=== PATIENT | male | born 1950 | race Caucasian/White ===

== ENCOUNTER → 2021-06-02 | Emergency (ER) | payer OTHER, MEDICARE ==
[~2021-06-02] VITALS: Ht 177.8 cm; Wt 73.9 kg
[2021-06-02 18:58] VITALS: BP 137/72
--- NOTE | 2021-06-03 12:46 | EKG ---
[address] [place] [address] ELECTROCARDIOGRAM REPORT Name: GOLD JACKSON Room #: REG MARGE Choe#: [id number] Admission: 06/02/21 Attend Phys: Discharge: Date of : 52 Report #: [id number] [facility] ED Test Date: 2021-06-02 Test Time: 19:07:32 Pat Name: GOLD JACKSON Department: Room: Gender: Brake Holder: VARGAS : 1950 Requested By: Lloyd Johnson Order Number: [id number] MD: Krish Bhagat Measurements Intervals [place] Rate: 70 P: 62 [place]: 168 QRS: 63 QRSD: 103 T: 63 QT: 391 QTc: 422 Interpretive Statements Sinus rhythm No previous ECG available for comparison Electronically Signed On 06-03-2021 12:45:55 PATIENT COORDINATOR FRONT DESK by Krish Bhagat [email or web address] <ELECTRONICALLY SIGNED> By: Krish Bhagat MD 06/03/21 1245 1907 06 Krish Bhagat MD /EPI
== END ==
LOC: ER 18:52
DX: S01.81XA Laceration without foreign body of other part of head, initial encounter (principal); R55 Syncope and collapse; Z53.21 Procedure and treatment not carried out due to patient leaving prior to being seen by health care provider; W18.30XA Fall on same level, unspecified, initial encounter; Y93.89 Activity, other specified; Y92.89 Other specified places as the place of occurrence of the external cause; Y99.9 Unspecified external cause status